=== PATIENT | male | born 1995 | race African-American/Black ===

== ENCOUNTER 2021-08-06 11:27 | Emergency (ER) | payer MEDICAID ==
[~2021-08-06] VITALS: Ht 167.6 cm; Wt 74.0 kg
[2021-08-06] MEDS ORDERED: KETOROLAC 60MG/2ML VIAL IM STA (11:42)
[2021-08-06] MEDS ORDERED: LIDOCAINE HCL/EPINEPHRINE 1%-EPI 1:100,000 20 ML VIAL INFIL ONE (11:45)
[2021-08-06] MEDS ORDERED: BACITRACIN ZINC OINT UDPKT TOP ONE (11:45)
[2021-08-06] MEDS ORDERED: TETANUS, DIPHTHERIA, PERTUSSIS VAC/PF 0.5ML (>10YR OLD) IM ONE (11:45)
[2021-08-06] MEDS ORDERED: LIDOCAINE HCL/EPINEPHRINE 1%-EPI 1:100,000 10 ML VIAL INFIL NR (12:18)
[2021-08-06 17:24] VITALS: BP 110/69
[2021-08-06] MEDS ORDERED: IBUP-2029 PO (18:04)
[2021-08-06] MEDS ORDERED: CEPH500T PO (18:26)
== END 2021-08-06 19:20 | disposition home or self-care (01) ==
LOC: ER 11:27
DX: S02.40FA Zygomatic fracture, left side, initial encounter for closed fracture (principal); Y08.89XA Assault by other specified means, initial encounter; Y93.89 Activity, other specified; Y92.89 Other specified places as the place of occurrence of the external cause; Y99.8 Other external cause status
CPT/HCPCS: 70450; 70486; 90471; 90715; 96372; 99284; J1885; J3490